=== PATIENT | male | born 1975 | race Caucasian/White ===

== ENCOUNTER 2023-06-26 14:13 | Emergency (ER) | payer SELFPAY ==
[2023-06-26] MEDS ORDERED: Sodium Chloride 0.9% 10 ML Syringe FLUSH PRN (14:30)
[2023-06-26 15:02] LABS: BASOPHILS PERCENT AUTO 0.2 % (0.2-1.2); EOSINOPHILS PERCENT AUTO 0.2 % (0.0-4.0); HEMATOCRIT 40.7 % (40.0-52.0); HEMOGLOBIN 14.7 g/dL (14.0-18.0); IMMATURE GRAN ABSOLUTE AUTO 0.05 x10^3/uL (0.00-0.07); LYMPHOCYTES ABSOLUTE AUTO 0.7 x10^3/uL (1.0-4.8); LYMPHOCYTES PERCENT AUTO 7.8 % (25.0-50.0); MEAN CORPUSCULAR HEMOGLOBIN 30.4 pg (26.0-32.0); MEAN CORPUSCULAR HGB CONC 36.1 g/dL (32.0-36.0); MEAN CORPUSCULAR VOLUME 84.3 fL (78.0-93.0); MONOCYTES ABSOLUTE AUTO 0.3 x10^3/uL (0.0-0.8); MONOCYTES PERCENT AUTO 3.7 % (2.0-11.0); NEUTROPHILS ABSOLUTE AUTO 8.1 x10^3/uL (1.8-7.7); NEUTROPHILS PERCENT AUTO 87.6 % (50.0-80.0); PLATELET COUNT,PLT 176 x10^3/uL (130-400); RED BLOOD CELL COUNT 4.83 x10^6/uL (4.5-6.0); WHITE BLOOD CELL COUNT,WBC 9.3 x10^3/uL (4.0-10.0)
[2023-06-26] MEDS: Sodium Chloride 0.9% 1,000 ML IV SCH (15:02)
[2023-06-26] MEDS: Ondansetron 4 MG/2 ML SDV IVPUSH ONE (15:03)
[2023-06-26] MEDS: HYDROmorphone 1 MG/ML Syringe IVPUSH ONE (15:05)
[2023-06-26 15:17] LABS: PROTHROMBIN TIME 10.3 SEC (9.5-12.2); PTT,PARTIAL THROMBOPLSTIN TIME 23.4 SEC (23.6-33.6)
[2023-06-26 15:26] LABS: LACTIC ACID 2.7 mmol/L (0.4-2.0)
[2023-06-26 15:34] LABS: A/G RATIO 1.16; ALANINE AMINOTRANSFERASE,ALT 68 U/L (16-63); ALBUMIN 4.3 g/dL (3.4-5.0); ALKALINE PHOSPHATASE 89 U/L (46-116); ASPARTATE AMNIOTRANSFERASE,AST 41 U/L (15-37); BILIRUBIN TOTAL 0.7 mg/dL (0.2-1.0); BLOOD UREA NITROGEN,BUN 13 mg/dL (7-18); C-REACTIVE PROTEIN 0.39 mg/dL (<=0.30); CALCIUM 8.9 mg/dL (8.5-10.1); CARBON DIOXIDE,CO2 27 mmol/L (21-32); CHLORIDE,CL 103 mmol/L (98-107); CREATININE 1.1 mg/dL (0.70-1.30); GLUCOSE RANDOM 133 mg/dL (70-99); LIPASE 31 U/L (19-71); SODIUM,NA 141 mmol/L (136-145)
[2023-06-26 15:35] LABS: ESTIMATED GFR 82 mL/min (>=60)
[2023-06-26 15:57] LABS: BILIRUBIN,URINE NEGATIVE (NEGATIVE); COLOR,URINE YELLOW (YELLOW); GLUCOSE,URINE NEGATIVE (NEGATIVE); KETONES,URINE NEGATIVE (NEGATIVE); LEUKOCYTE ESTERASE,URINE NEGATIVE (NEGATIVE); NITRITE,URINE NEGATIVE (NEGATIVE); OCCULT BLOOD,URINE MODERATE (NEGATIVE); PH,URINE 7.5 (5.0-8.0); PROTEIN,URINE TRACE mg/dL (NEGATIVE)
[2023-06-26 16:00] LABS: APPEARANCE,URINE SLIGHTLY CLOUDY (CLEAR)
[2023-06-26 16:09] LABS: BACTERIA,URINE RARE /HPF (NOT SEEN); MUCUS,URINE OCCASIONAL /LPF (NOT SEEN); RBC,URINE 30-40 /HPF (NOT SEEN); SQUAMOUS EPITHELIAL CELLS,UR NOT SEEN /HPF (NOT SEEN); WBC,URINE 0-5 /HPF (NOT SEEN)
[2023-06-26] MEDS: Iopamidol 612 MG/ML 100 ML Bottle IVPUSH ONE ×2 (17:04→17:11)
[2023-06-26] MEDS ORDERED: Tamsulosin 0.4 MG Cap.ER PO ONE (18:14)
[2023-06-26] MEDS: Take Home: Sulfamethoxazole/Trimethoprim 800-160 MG Tab, 6 Tab Pack PO ONE (18:33)
[2023-06-26] MEDS: Take Home: Acetaminophen/HYDROcodone 325-10 MG, 5 Tab Pack PO ONE (18:33)
[2023-06-26] MEDS: Tamsulosin 0.4 MG Cap.ER PO ONE (18:33)
== END 2023-06-26 18:40 | disposition home or self-care (01) ==
LOC: VM.ED 14:13
DX: N13.2 Hydronephrosis with renal and ureteral calculous obstruction (principal)
CPT/HCPCS: 74178; 80053; 81001; 83605; 83690; 83735; 85025; 85610; 85730; 86140; 96361; 96374; 96375; 99284; A9270; J1170; J2405; J7030; Q9967